=== PATIENT | male | born 1940 | race Caucasian/White ===

== ENCOUNTER 2020-01-12 17:45 | Emergency (ER) | payer MEDICARE ==
[~2020-01-12] VITALS: Ht 172.7 cm; Wt 81.8 kg
[~2020-01-12 17:45] MED LIST: ALBU18HF INH; ALLO300T PO; ASPI-496 PO; ATOR-2 PO; ATOR40TA PO; CARV-39 PO; CHOL2000 PO; CLOP75TA52 PO; FLUO20CA23 PO; FLUO20TA25 PO; FURO40TA6 PO; GLIM2TAB7 PO; GUAI118L19 PO; HYDR-3343 PO; IRON1TAB60 PO; ISOS30TA8 PO; LISI1TAB20 PO; LOSA100T14 PO; LOSARTAN; MAGN400T26 PO; METF10002 PO; OMEP-110 PO; POTA20PA25 PO; POTA20TA6 PO; SPIR25TA PO; [UNRECOGNIZED DRUG - CODE] INH; [UNRECOGNIZED DRUG - CODE] PO
--- NOTE | 2020-01-12 18:26 | NUR ---
pt to ed for "leakage in the small intestine." pt states drJuan Luis called him and told him his blood is low and needs to go to the er. pt states possible dark, loose stool for "a little while." pt connected to all monitors. vss. Dr. Cameron to bs for assessment. orders received. piv established and labs drawn. ekg complete. xr complete. awaiting results.
[2020-01-12 18:42] LABS: ALBUMIN 3.6 g/dL (3.4-5.0); ANION GAP 6 mmol/L (5-15); CHLORIDE 109 mmol/L (98-107); CREATININE 2.06 mg/dL (0.7-1.3)
[2020-01-12 18:45] LABS: TROPONIN I 0.019 ng/mL (0.000-0.045)
[2020-01-12 18:53] LABS: BASOPHILS % (AUTO) 0 % (0-1); EOSINOPHILS # (AUTO) 0.28 x10^3/uL (0-0.4); EOSINOPHILS % (AUTO) 7 % (1-7); LYMPHOCYTES # (AUTO) 0.48 x10^3/uL (1-3.4); LYMPHOCYTES % (AUTO) 13 % (22-44); MD SCAN; MEAN CORPUSCULAR HEMOGLOBIN 26.7 pg (27.5-34.5); MEAN CORPUSCULAR HGB CONC 31.6 g/dL (33.2-36.2); MEAN CORPUSCULAR VOLUME 84.3 fL (81-97); MEAN PLATELET VOLUME 8.9 fL (7.4-10.4); MONOCYTES # (AUTO) 0.41 x10^3/uL (0.2-0.8); MONOCYTES % (AUTO) 11 % (2-9); NEUTROPHILS # (AUTO) 2.68 x10^3/uL (1.8-6.8); NEUTROPHILS % (AUTO) 70 % (42-75); PLATELET COUNT 204 x10^3/uL (130-400); RED BLOOD COUNT 2.87 x10^6/uL (4.38-5.82); RED CELL DISTRIBUTION WIDTH 16.5 % (9.4-14.8)
--- NOTE | 2020-01-12 18:55 | NUR ---
report to TAMMY Rogel.
--- NOTE | 2020-01-12 19:29 | NUR ---
Pt alert and oriented. Pt and aware of plan to transfuse. Blood consent signed and in the chart. VSS.
--- NOTE | 2020-01-12 19:48 | NUR ---
Per assist RN, blood bank currently working on blood and will notify RN when ready. Pt and updated.
[2020-01-12 19:57] VITALS: BP 141/72
--- NOTE | 2020-01-12 19:57 | NUR ---
Blood transfusion started. Verified with TAMMY Kaur. Pt VSS. DUNCAN.
[2020-01-12 20:18] VITALS: BP 132/70
--- NOTE | 2020-01-12 20:21 | NUR ---
Pt tolerated first 15 mins of transfusion without S/Sx of reaction. VSS. Call light within reach.
--- NOTE | 2020-01-12 20:24 | NUR ---
Pt daughter - Kelsy,
--- NOTE | 2020-01-12 21:08 | NUR ---
Spoke with Kelsy, she will be here at 2200 to sweet pickled fruit maker pt. Pt continues to tolerate transfusion without problems.
[2020-01-12 21:32] VITALS: BP 150/70
[2020-01-12 21:33] VITALS: BP 150/70
--- NOTE | 2020-01-12 21:33 | NUR ---
Transfusion complete. VSS. Pt denies any S/Sx of reaction.
--- NOTE | 2020-01-12 21:37 | NUR ---
Pt able to ambulate without problems, and reports he feels better.
--- NOTE | 2020-01-12 21:55 | NUR ---
Pt d/c'd to home care. Pt alert, oriented and ambulatory. NAD. Pt educated on home care, prescription, OTC meds and follow-up. Pt VU. Pt ambulated out of ER with .
== END 2020-01-12 22:06 | disposition home or self-care (01) ==
LOC: ED 19:30
DX: K92.2 Gastrointestinal hemorrhage, unspecified (principal); D50.0 Iron deficiency anemia secondary to blood loss (chronic); I11.0 Hypertensive heart disease with heart failure; I50.9 Heart failure, unspecified; I48.91 Unspecified atrial fibrillation; E78.00 Pure hypercholesterolemia, unspecified; Z87.891 Personal history of nicotine dependence
CPT/HCPCS: 36415; 36430; 71045; 80048; 82040; 84484; 85025; 86850; 86900; 86923; 93005; 99285; P9016

== ENCOUNTER 2020-07-06 10:15 | Outpatient (CLI) | payer MEDICARE ==
[2020-07-06] MEDS ORDERED: ATROPINE SYRINGE 0.1 MG/ML, 10ML ONE (10:45)
[2020-07-06] MEDS ORDERED: DOBUTAMINE/D5W PMX 250 ML ONE (10:45)
[2020-07-06] MEDS ORDERED: NITROGLYCERIN 0.4 MG BOTTLE (25 TABS) SL ONE (10:46)
== END 2020-07-06 23:59 | disposition home or self-care (01) ==
LOC: CARD 10:15
PROVIDERS: ATTEND Internal Medicine Cardiovascular Disease
DX: I35.0 Nonrheumatic aortic (valve) stenosis (principal); I42.9 Cardiomyopathy, unspecified
CPT/HCPCS: 93017; 93350; J1250; J0461

== ENCOUNTER → 2020-07-27 | Outpatient (CLI) | payer MEDICARE | END | disposition home or self-care (01) | LOC: CVU 09:42 | PROVIDERS: ATTEND Internal Medicine Cardiovascular Disease | DX: I65.23 Occlusion and stenosis of bilateral carotid arteries (principal); R91.1 Solitary pulmonary nodule; I51.7 Cardiomegaly; I70.0 Atherosclerosis of aorta; K80.20 Calculus of gallbladder without cholecystitis without obstruction; K57.30 Diverticulosis of large intestine without perforation or abscess without bleeding; M48.56XA Collapsed vertebra, not elsewhere classified, lumbar region, initial encounter for fracture; J84.9 Interstitial pulmonary disease, unspecified; I35.0 Nonrheumatic aortic (valve) stenosis | CPT/HCPCS: 71250; 74176; 93880; 93978; 94010; 94726; 94729 ==

== ENCOUNTER → 2020-07-28 | Outpatient (CLI) | payer MEDICARE | END | disposition home or self-care (01) | LOC: STAR 11:49 | PROVIDERS: ATTEND Anesthesiology | DX: Z01.812 Encounter for preprocedural laboratory examination (principal); Z20.828 Contact with and (suspected) exposure to other viral communicable diseases | CPT/HCPCS: 36415; 87635 ==

== ENCOUNTER 2020-08-03 07:16 | Inpatient (IN) | payer MEDICARE ==
[~2020-08-03] VITALS: Ht 171.4 cm; Wt 80.1 kg
[2020-08-03 07:53] VITALS: BP 150/80
[2020-08-03] MEDS ORDERED: ONDANSETRON 2MG/ML, 2ML IVPush PRN (08:00)
[2020-08-03] MEDS ORDERED: SODIUM CHLORIDE 0.9% 1,000 ML IV ONE (08:00)
[2020-08-03 08:08] LABS: BASOPHILS % (AUTO) 0 % (0-1); EOSINOPHILS % (AUTO) 11 % (1-7); LYMPHOCYTES % (AUTO) 10 % (22-44); MEAN CORPUSCULAR HEMOGLOBIN 29.3 pg (27.5-34.5); MEAN CORPUSCULAR HGB CONC 33.2 g/dL (33.2-36.2); MEAN PLATELET VOLUME 8.9 fL (7.4-10.4); MONOCYTES % (AUTO) 10 % (2-9); NEUTROPHILS % (AUTO) 69 % (42-75); PLATELET COUNT 134 x10^3/uL (130-400); RED BLOOD COUNT 3.49 x10^6/uL (4.38-5.82); RED CELL DISTRIBUTION WIDTH 17.8 % (9.4-14.8)
[2020-08-03 08:18] LABS: ALANINE AMINOTRANSFERASE 19 U/L (12-78); ALBUMIN 3.5 g/dL (3.4-5.0); ANION GAP 6 mmol/L (5-15); CALCIUM 8.9 mg/dL (8.5-10.1); CHLORIDE 110 mmol/L (98-107); CREATININE 1.71 mg/dL (0.7-1.3)
[2020-08-03 08:20] LABS: ALKALINE PHOSPHATASE 83 U/L (45-117); BILIRUBIN,TOTAL 0.8 mg/dL (0.2-1.0); TOTAL PROTEIN 7.5 g/dL (6.4-8.2)
[2020-08-03 08:26] LABS: INTERNATIONAL NORMALIZED RATIO 1.14 (0.93-1.1); PROTHROMBIN TIME 12.1 Seconds (9.6-11.5)
[2020-08-03] MEDS ORDERED: CALC30CA PO (08:26)
[2020-08-03] MEDS ORDERED: FURO20TA3 PO (08:26)
[2020-08-03] MEDS ORDERED: ASPI81TA45 PO (08:26)
[2020-08-03] MEDS ORDERED: CLOP75TA PO (08:26)
[2020-08-03] MEDS ORDERED: IRON15TA3 PO (08:26)
[2020-08-03] MEDS ORDERED: FENTANYL PF 250 MCG/5ML ONE (08:37)
[2020-08-03] MEDS ORDERED: SUCCINYLCHOLINE 20 MG/ML, 10ML ONE (08:48)
[2020-08-03] MEDS ORDERED: PROPOFOL 10 MG/ML, 20ML ONE (08:48)
[2020-08-03] MEDS ORDERED: ONDANSETRON 2MG/ML, 2ML ONE (08:48)
[2020-08-03] MEDS ORDERED: CEFAZOLIN 1,000 MG ONE (08:48)
[2020-08-03 09:02] LABS: MD SCAN
[2020-08-03] MEDS: CLOPIDOGREL 75 MG TABLET PO SCH (10:00)
[2020-08-03] MEDS ORDERED: hydrALAzine 20 MG/ML, 1ML IVPush PRN (10:00)
[2020-08-03] MEDS ORDERED: LABETALOL 20 MG/4 ML IVPush PRN (10:00)
[2020-08-03 14:34] VITALS: BP 137/65
[2020-08-03] MEDS ORDERED: ATORVASTATIN 40 MG TABLET PO SCH (21:00)
[2020-08-03 21:03] VITALS: BP 127/63
[2020-08-03] MEDS: FUROSEMIDE 40 MG TABLET PO SCH (21:05)
[2020-08-03] MEDS: CARVEDILOL 25 MG TABLET PO SCH (21:05)
[2020-08-03] MEDS ORDERED: ACETAMINOPHEN 325 MG TABLET PO PRN (21:30)
[2020-08-04 01:32] VITALS: BP 109/57
[2020-08-04 06:24] LABS: ANION GAP 7 mmol/L (5-15); CALCIUM 8.5 mg/dL (8.5-10.1); CHLORIDE 110 mmol/L (98-107)
[2020-08-04 06:25] LABS: CREATININE 1.97 mg/dL (0.7-1.3)
[2020-08-04 06:32] LABS: BASOPHILS % (AUTO) 0 % (0-1); EOSINOPHILS % (AUTO) 7 % (1-7); LYMPHOCYTES % (AUTO) 11 % (22-44); MEAN CORPUSCULAR HEMOGLOBIN 29.4 pg (27.5-34.5); MEAN CORPUSCULAR HGB CONC 33.3 g/dL (33.2-36.2); MEAN PLATELET VOLUME 9.3 fL (7.4-10.4); MONOCYTES % (AUTO) 12 % (2-9); NEUTROPHILS % (AUTO) 70 % (42-75); PLATELET COUNT 102 x10^3/uL (130-400); RED BLOOD COUNT 2.75 x10^6/uL (4.38-5.82); RED CELL DISTRIBUTION WIDTH 17.3 % (9.4-14.8)
[2020-08-04 06:39] LABS: MD NO
[2020-08-04] MEDS: FUROSEMIDE 40 MG TABLET PO SCH (08:43)
[2020-08-04] MEDS: CLOPIDOGREL 75 MG TABLET PO SCH (08:43)
[2020-08-04] MEDS: CARVEDILOL 25 MG TABLET PO SCH (08:44)
[2020-08-04 08:56] VITALS: BP 109/52
[2020-08-04] MEDS ORDERED: GLIMEPIRIDE 1 MG TABLET PO SCH (09:00)
[2020-08-04] MEDS ORDERED: ASPIRIN 81 MG TABLET EC PO SCH (09:00)
[2020-08-04] MEDS ORDERED: LOSARTAN 100 MG TAB PO SCH (09:00)
[2020-08-04] MEDS ORDERED: FLUOXETINE HCL 20 MG CAPSULE PO SCH (09:00)
[2020-08-04 13:17] VITALS: BP 122/54
== END 2020-08-04 13:55 | disposition home or self-care (01) | DRG 266 ==
LOC: ORIP 07:16 → 5SO 11:25 → DCLOUNGE 08-04 13:41
PROVIDERS: ADMIT Internal Medicine Cardiovascular Disease; ATTEND Internal Medicine Cardiovascular Disease
PROC: B3101ZZ Fluoroscopy of Thoracic Aorta using Low Osmolar Contrast (ICD-10-PCS; 2020-08-03)
PROC: B24BZZ4 Ultrasonography of Heart with Aorta, Transesophageal (ICD-10-PCS; 2020-08-03)
PROC: 02RF38Z Replacement of Aortic Valve with Zooplastic Tissue, Percutaneous Approach (ICD-10-PCS; principal; 2020-08-03 09:30)
DX: I35.0 Nonrheumatic aortic (valve) stenosis (principal); Z00.6 Encounter for examination for normal comparison and control in clinical research program; I50.33 Acute on chronic diastolic (congestive) heart failure; D68.69 Other thrombophilia; I25.5 Ischemic cardiomyopathy; I25.10 Atherosclerotic heart disease of native coronary artery without angina pectoris; E78.5 Hyperlipidemia, unspecified; E11.9 Type 2 diabetes mellitus without complications; D64.9 Anemia, unspecified; D69.6 Thrombocytopenia, unspecified; I11.0 Hypertensive heart disease with heart failure; I27.20 Pulmonary hypertension, unspecified; I48.0 Paroxysmal atrial fibrillation
CPT/HCPCS: 33361; 36415; 76937; 80048; 80053; 85025; 85347; 85610; 85730; 86850; 86900; 86923; 93005; 93306; 93312; 93321; 93325; 93355; C1760; C1769; C1894; G0378; J0690; J2405; J2704; J3010; J0330; J7030; Q9967